=== PATIENT | male | born 1980 | race Two or more races ===

== ENCOUNTER 2024-02-19 14:30 | Emergency (ER) | payer MEDICAID, OTHER, SELFPAY ==
[~2024-02-19] VITALS: Ht 170.2 cm; Wt 80.1 kg
[2024-02-19 17:09] VITALS: BP 153/90; TEMP 97.8; O2SAT 97
[2024-02-19] MEDS: LIDOCAINE 1% MDV 20ML VIAL SC ONE (17:20)
[2024-02-19] MEDS: BOOSTRIX VACCINE (TETANUS/DIPHTH/ACEL. PERTUSSIS) 0.5ML SYR IM ONE (17:51)
== END 2024-02-19 17:54 | disposition home or self-care (01) ==
LOC: M ED 14:30
DX: S61.210A Laceration without foreign body of right index finger without damage to nail, initial encounter (principal); X58.XXXA Exposure to other specified factors, initial encounter; Y92.9 Unspecified place or not applicable; Y93.9 Activity, unspecified; Y99.0 Civilian activity done for income or pay